=== PATIENT | female | born 1960 | race Caucasian/White ===

== ENCOUNTER 2023-01-27 07:43 | Emergency (ER) | payer OTHER ==
[~2023-01-27] VITALS: Ht 170.2 cm; Wt 105.2 kg
[2023-01-27 07:50] VITALS: O2SAT 95
[2023-01-27] MEDS ORDERED: KETOROLAC TROMETHAMINE 30 MG/ML VIAL IM STA (08:03)
[2023-01-27] MEDS ORDERED: NAPROXEN250 MG PO (09:02)
== END 2023-01-27 09:15 | disposition home or self-care (01) ==
LOC: ER 07:50
DX: M79.671 Pain in right foot (principal); J44.9 Chronic obstructive pulmonary disease, unspecified
CPT/HCPCS: 73630; 99283; J1885